=== PATIENT | male | born 1975 | race Caucasian/White ===

== ENCOUNTER → 2024-11-21 | Outpatient (CLI) | payer OTHER, SELFPAY ==
--- NOTE | 2024-11-21 16:49 | CT_ITS ---
PROCEDURE: EXTREMITY UPPER WITHOUT CONTRA 11/21/2024 REASON FOR EXAM: TSA PLANNING, NEED BLUEPRINT CUTS FOR STEMLESS TSA TECHNIQUE: Procedure Code: CTEUWO Modality: CT Procedure: EXTREMITY UPPER WITHOUT CONTRA Coronal and Sagittal reconstruction series were provided. One or more dose reduction techniques were used (e.g., Automated exposure control, adjustment of the mA and/or kV according to patient size, use of iterative reconstruction technique. RADIATION DOSE SUMMARY: CTDlvol: 40 mGy DLP: 1167 mGycm FINDINGS: Severe diffuse grade 4 udwt-fi-ygqf glenohumeral joint arthrosis with extensive periarticular cystic changes, cortical erosions, periarticular sclerosis, marginal osseous ridging, broadening and mild flattening of the articular surfaces, effusion and multiple internal bodies. No evidence of fracture Mild superior humeral head migration. No significant AC joint arthrosis. No adenopathy or other soft tissue abnormality identified, aside from mild atrophy of all rotator cuff muscles. Visualized portions of the lungs appear unremarkable. Cervicothoracic spondylosis, without fracture or spondylolisthesis identified. CT/Extremity Upper without Contra IMPRESSION: Severe diffuse grade 4 bluv-ng-esou glenohumeral joint arthrosis, with effusion and internal bodies. Rotator cuff muscle atrophy and mild superior humeral head migration. Spondylosis. Reading Location: [place]
--- NOTE | 2024-11-21 16:58 | MRI_ITS ---
PROCEDURE: UPPER EXT JOINT ONLY(ROUTINE) 11/21/2024 REASON FOR EXAM: EVAL THE CUFF FOR PLANNING A TOTAL SHOULDER TECHNIQUE: Procedure Code: MRIUEJ Modality: MR Procedure: UPPER EXT JOINT ONLY(ROUTINE) Multiplanar and multisequence images were obtained without IV contrast administration. COMPARISON: COMPARISON: Left shoulder CT 11/21/2024. FINDINGS: Rotator cuff: Mild atrophy of all rotator cuff muscles. Rotator cuff tendinosis with gku-pe-eoswksgf grade deep margin partial tearing of the distal infraspinatus tendon just proximal to the insertion. Ill- defined moderate grade irregular partial tearing along both surfaces of the supraspinatus tendon predominating anteriorly, causing overall moderately severe attenuation, with as much as 3.1 cm retraction of torn deep origin fibers, without full-thickness tear component. Thinning and mild deep margin partial tearing of the distal subscapularis tendon. Long biceps tendinosis without tear, subluxation, retraction or tenosynovitis. Bones and soft tissues: Severe diffuse grade 4 rlim-kq-sbhw glenohumeral joint chondral loss, with extensive periarticular bone edema and subcortical cystic changes lining both articular surfaces, with mild cortical irregularity, broadening and flattening across the joint. Glenohumeral joint effusion containing multiple internal bodies, mostly residing in the anterior subscapular recess. Type 1 acromion. No coracoclavicular ligament tear. Mild AC joint arthrosis. Slight subacromial/subdeltoid bursitis. Mild posterior humeral head subluxation. Labrum: Undermining and partial detachment of the posterior labrum. Blunting and fraying of the anterior labrum. Attenuation, blunting and fraying of the superior labrum. Severe inferior labral attenuation and irregularity, suggesting chronic tearing. No definite paralabral cyst. MRI/Upper Ext Joint Only(Routine) IMPRESSION: Severe diffuse grade 4 ubdj-dw-hdsh glenohumeral joint arthrosis with periartic ular cystic changes, bone edema, effusion and internal bodies. Mild posterior humeral head subluxation. Ill-defined moderate grade partial tearing of both surfaces of the supraspinatu s tendon cause overall moderately severe attenuation. Extensive areas of blunting, fraying, undermining, partial detachment and teari ng of the labrum as described. Uuc-ma-vouulgov grade deep margin partial tearing of the distal infraspinatus t endon. Thinning and deep margin partial tearing of the distal subscapularis tendon. Slight subacromial/subdeltoid bursitis. Mild AC joint arthrosis. Rotator cuff and long biceps tendinosis. Reading Location[facility]
--- OUTSIDE RECORDS SUMMARY | 2024-11-22 00:51 | XMS RPT_ITS | CCD ---
Author Organization [facility] Care Team Providers Care Principal Clerk Typist Name Role Phone Julio Witt MD Attending Physician [phone] Julio Witt Attending Unavailable [facility] Doctor, Out of Primary Care Unavailable Julio Witt Referring Unavailable Julio Witt Attending Unavailable Medications Current Medications Medication Drug Class(es) Dates Sig (Normalized) Sig (Original) acetaminophen 325 mg oral capsule (1 source) Start: 11-07-2024 take 1 capsule by mouth once as needed Problems Problem Classification Problem Date Documented Date Episodic/Chronic Osteoarthritis (4 sources) Osteoarthritis of joint of left shoulder region; Translations: [Primary osteoarthritis, left shoulder] Onset: 11-07-2024 11-07-2024 Chronic Other non-traumatic joint disorders (4 sources) Pain in left shoulder; Translations: [Left shoulder pain] Onset: 11-07-2024 11-07-2024 Episodic Results Test Name Value Interpretation Reference Range Facil [facility] Orthopedic Visit Reporton Orthopedic Visit Report [facility] [address] [place] [address] OFFICE VISIT Date of Service: 11/07/24 MR#: [id number] Acct: [id number] Name: NIKOLAY HILTON Rep #: [id number] : 1975 Provider: Dr. Julio posey MD Age/Sex: 49/M [place] [facility] [place]: Signed Intake Vital Signs 11/07/24 14:37 Height 5 ft 9 in Weight: 240 lb BMI 35.4 Intake Visit Reasons: LEFT SHOULDER Chief Complaint: Left Shoulder Pain Accompanied by: Self Is patient in pain?: Yes Pain scale (1-10): 2 Allergies No Known Allergies Allergy (Unverified 11/07/24 14:38) Medications ???Medication ???Instructions ???Recorded ???Confirmed ???Type acetaminophen 325 mg capsule 325 mg PO ONCE PRN 11/07/24 History PFSH Medical History (Updated 11/07/24 @ 14:46 by Julio Witt MD) Primary osteoarthritis, left shoulder Left shoulder pain Surgical History History of cervical spinal surgery History of ankle surgery Family History (Updated 11/07/24 @ 14:39 by Gabrielle Guadarrama) Other Diabetes Social History (Updated 11/07/24 @ 14:40 by Gabrielle Guadarrama) household members: spouse and children Smoking Status: Never smoker alcohol intake: current alcohol intake frequency: holidays/special occasions only HPI LEFT SHOULDER Details: This documentation accurately reflects the service provided and the decisions made by me, Dr. Julio Witt MD 11/07/24 1301. Part of today???s visit was documented by [ ], acting as scribe. 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 getting stiff in FE and abudciton, worse with laying down, feels like it slips. affects the sleep. went to surgeon in [place], they did a couple cortisone injections but they aren't helping. last one months ago. Supplemental Info XR L shoulder -uploaded to PACS show advanced degenerative changes central wear Contreras type a glenoid osteoarthritic changes with complete loss of the joint space and a large medial osteophyte 10/31/23 Coding Level of Care Code Off vis,new,level 4 Diagnoses Left shoulder pain M25.512 Primary osteoarthritis, left shoulder M19.012 Assessment and Plan Assessment and Plan (1) Left shoulder pain: Status: Acute Plan: NIKOLAY HILTON is a 49 year old M here today for L shoulder pain. Patient has advanced glenohumeral osteoarthritis. Explained the diagnosis prognosis different treatment options including rest ice anti-inflammatories activity modifications intra-articular cortisone injections as well as a total shoulder arthroplasty. I think the patient would be well served with a joint replacement surgery considering multiple years of pain difficulty sleeping and failure of conservative management. Patient understands wishes to likely proceed with an anatomic total shoulder arthroplasty so I will get a CT scan for blueprint planning as well as a MRI to evaluate the rotator cuff. The patient understands no further questions will follow-up after the test. (2) Primary osteoarthritis, left shoulder: Status: Acute Orders: Orders Extremity Upper without Contra Today M19.012 - Primary osteoarthritis, left shoulder, M25.512 - Pain in left shoulder Upper Ext Joint Only(Routine) Today M19.012 - Primary osteoarthritis, left shoulder, M25.512 - Pain in left shoulder Ortho Exam General General: Yes no acute distress Neurologic: Yes alert and Yes oriented x3 Psychologic: Yes reasonable and appropriate Left Shoulder Skin/Wound: Yes CDI, No ecchymosis, No erythema and No swelling Testing: Yes Hawkin's, Yes Neer's, No empty can, No scapular winging and Yes belly press normal SHOULDER: normal motor and sens to axillary N, MRU and AIN/PIN. Hand warm well perfused normal radial pulse active and passive FE 80, ER 0. strengh 4++ in FE and ER. ++ crepitus, pain at end ROM. 11/07/24 1500 Date Julio Witt MD Cosigner Signature: Date (if applicable) CC: Normal [facility] Vital Signs Date Time Vital Sign Value Performing Clinician Dia remy 11-07-2024 14:37-0400 Body height 175.26 cm Julio Witt MD Work Phone: [facility] 11-07-2024 14:37-0400 Body mass index (BMI) [Ratio] 35.4 kg/m2 Julio Witt MD Work Phone: [facility] 11-07-2024 14:37-040 Body weight 108.86 kg Julio Witt MD Work Phone: [facility] Encounters Encounter Date Encounter Type Care Provider Facility Start: 11-21-2024 ambulatory Out of Town Doctor Dia remy:[facility] Start: 11-07-2024 End: 11-07-[address] Julio Witt MD -[facility] Work Phone: Start: 11-07-2024 End: 11-07-2024 ambulatory Julio Witt -[facility] Plan of Treatment Date Care Activity Detail Author CT Upper extremity WO [facility] MR Lower Extremity Joint [facility] Immunizations Immunization Date Immunization Notes Care Provider Fa cility 04-03-2023 Hepatitis B vaccine (recombinant), CpG adjuvanted Julio Witt MD Work Phone: [facility] 02-17-2023 Hepatitis B vaccine (recombinant), CpG adjuvanted Julio Witt MD Work Phone: [facility] 12-17-2020 Covid (Pfizer) Julio carpenter MD Work Phone: [facility] 03-09-2020 Covid (Pfizer) Julio carpenter MD Work Phone: [facility] 02-17-2020 Covid (Pfizer) Julio carpenter MD Work Phone: [facility] Payers Date Payer Category Payer Self-pay 2024 Unknown [id number] Unknown [id number] Unknown [id number] Social History Date Type Detail Facility Start: 11-07-2024 Tobacco smoking stat us [facility] Never smoked tobacco (finding) [facility] Sex Male [facility] Start: 1975 Sex Assigned At Male [facility] Progress note 11-07-2024 Note Date & Type Note Facility 11-07-2024 Progress note [facility] Progress note 11-07-2024 Note Date & Type Note Facility 11-07-2024 Progress note Note Date/Time November 07, 2024 2:58pm [facility] [address] [place] [id number] OFFICE VISIT Date of Service: 11/07/24 MR#: [id number] Acct: [id number] Name: NIKOLAY HILTON Rep #: [id number] : 1975 Provider: Dr. Mateus Witt MD Age/Sex: 49/M Location: [facility] [place] Status: Signed Intake Vital Signs 11/07/24 14:37 Height 5 ft 9 in Weight: 240 lb BMI 35.4 Intake Visit Reasons: LEFT SHOULDER Chief Complaint: Left Shoulder Pain Accompanied by: Self Is patient in pain?: Yes Pain scale (1-10): 2 Allergies No Known Allergies Allergy (Unverified 11/07/24 14:38) Medications ?Medication ?Instructions ?Recorded ?Confirmed ?Type acetaminophen 325 mg capsule 325 mg PO ONCE PRN 11/07/24 History PFSH Medical History (Updated 11/07/24 @ 14:46 by Julio Witt MD) Primary osteoarthritis, left shoulder Left shoulder pain Surgical History History of cervical spinal surgery History of ankle surgery Family History (Updated 11/07/24 @ 14:39 by Gabrielle Guadarrama) Other Diabetes Social History (Updated 11/07/24 @ 14:40 by Gabrielle Guadarrama) household members: spouse and children Smoking Status: Never smoker alcohol intake: current alcohol intake frequency: holidays/special occasions only HPI LEFT SHOULDER Details: This documentation accurately reflects the service provided and the decisions made by me, Dr. Julio Witt MD 11/07/24 1301. Part of today?s visit was documented by [ ], acting as scribe. 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 getting stiff in FE and abudciton, worse with laying down, feels like it slips. affects the sleep. went to surgeon in [place], they did a couple cortisone injections but they aren't helping. last one months ago. Supplemental Info XR L shoulder -uploaded to PACS show advanced degenerative changes central wear Contreras type a glenoid osteoarthritic changes with complete loss of the joint space and a large medial osteophyte 10/31/23 Coding Level of Care Code Off vis,new,level 4 Diagnoses Left shoulder pain M25.512 Primary osteoarthritis, left shoulder M19.012 Assessment and Plan Assessment and Plan (1) Left shoulder pain: Status: Acute Plan: NIKOLAY HILTON is a 49 year old M here today for L shoulder pain. Patient has advanced glenohumeral osteoarthritis. Explained the diagnosis prognosis different treatment options including rest ice anti-inflammatories activity modifications intra-articular cortisone injections as well as a total shoulder arthroplasty. I think the patient would be well served with a joint replacementsurgery considering multiple years of pain difficulty sleeping and failure of conservative management. Patient understands wishes to likely proceed with an anatomic total shoulder arthroplasty so I will get a CT scan for blueprint planning as well as a MRI to evaluate the rotator cuff. The patient understandsno further questions will follow-up after the test. (2) Primary osteoarthritis, left shoulder: Status: Acute Orders: Orders Extremity Upper without Contra Today M19.012 - Primary osteoarthritis, left shoulder, M25.512 - Pain in left shoulder Upper Ext Joint Only(Routine) Today M19.012 - Primary osteoarthritis, left shoulder, M25.512 - Pain in left shoulder Ortho Exam General General: Yes no acute distress Neurologic: Yes alert and Yes oriented x3 Psychologic: Yes reasonable and appropriate Left Shoulder Skin/Wound: Yes CDI, No ecchymosis, No erythema and No swelling Testing: Yes Hawkin's, Yes Neer's, No empty can, No scapular winging and Yes belly press normal SHOULDER: normal motor and sens to axillary N, MRU and AIN/PIN. Hand warm well perfused normal radial pulse active and passive FE 80, ER 0. strengh 4++ in FE and ER. ++ crepitus, pain at end ROM. 11/07/24 1500 <Electronically signed by Julio carpenter MD> Date _ Julio Witt MD Cosigner Signature: Date (if applicable) CC: ~ [facility] Work Phone: Evaluation note Note Date & Type Note Facility Evaluation note Diagnosis Onset Date Resolution Left shoulder pain acute Septem 2024 2:33pm Primary osteoarthritis, left shoulder acute November 07, 2024 2:33pm [facility] Work Phone: Reason for referral (narrative) Note Date & Type Note Facility Reason for referral (narrative) No reason for referral information available [facility] Work Phone: Chief Complaint and Reason for Visit Chief Complaint Admit Date LEFT SHOULDER November 07, 2024 2:33pm Reason for Visit Admit Date Left shoulder pain November 07, 2024 2:33pm Primary osteoarthritis, left shoulder Se ptember 2024 2:33pm Summary Purpose Family History No Family History Records Found Advance Directives No Advanced Directives Records Found Additional Source Comments Care Teams (unrecognized sec tion and content) Team Status: Active Member Role/Relationship Status Dates Out of [facility] Doctor Primary care physician Active Team Status: Inactive Member Role/Relationship Status Dates Julio Witt MD Attending physician Active S tart: November 07, 2024 End: November 07, 2024 Goals (unrecognized section and content) Goals may be documented in a n alternate section (unrecognized sect ion and content) No Status Records Found INFORMATION SOURCE (unrecogn ized section and content) DATE CREATED AUTHOR 11/13/2024 [facility] FOR RECORDS PERTAINING TO PATIENTS WHO ARE OR HAVE BEEN ENROLLED IN A CHEMICAL DEPENDENCY/SUBSTANCEABUSE PROGRAM, SOME INFORMATION MAY BE OMITTED. This clinical summary was aggregated from multiple sources. Caution should be exercised in using it in the provision of clinical care. This summary normalizes information from multiple sources, and as a consequence, information in this document may materially change the coding, format and clinical context of patient data. In addition, data may be omitted in some cases. CLINICAL DECISIONS SHOULD BE BASED ON THE PRIMARY CLINICAL RECORDS. [facility]. provides no warranty or guarantee of the accuracy or completeness of information in this document.
== END | disposition home or self-care (01) ==
PROVIDERS: Referring Provider Orthopaedic Surgery Sports Medicine; Visit Provider Orthopaedic Surgery Sports Medicine
DX: M19.012 Primary osteoarthritis, left shoulder (principal); M25.512 Pain in left shoulder
CPT/HCPCS: 73200; 73221

== ENCOUNTER 2025-01-01 05:18 | Day surgery (SDC) | payer OTHER, SELFPAY ==
--- NOTE | 2024-12-26 14:09 | EKG12_ITS ---
Test Reason : PRE OP Blood Pressure : */* mmHG Vent. Rate : 76 BPM Atrial Rate : 76 BPM P-R Int : 158 ms QRS Dur : 86 ms QT Int : 364 ms P-R-T Axes : 67 59 48 degrees QTcB Int : 409 ms Normal sinus rhythm Normal ECG No previous ECGs available Confirmed by Devon Mendoza ([id number]), assignment desk editor BIJU ROMERO ([id number]) on 12/30/2024 1:09:45 PM Referred By: Julio Witt Confirmed By: Devon Mendoza
[2024-12-26 14:38] LABS: Hematocrit 44.1 % (40-54); Hemoglobin 14.6 g/dL (13.0-16.5); Immature Granulocytes Count 0.010 X10^3/uL (0.0-0.0); Mean Corp Hgb Conc 33.1 g/dL (32-36); Mean Corpuscular Volume 81.4 fL (80-94); Mean Platelet Vol. 8.8 fl (6.2-12.0); NRBC Flagged by Analyzer 0 % (0-5); Platelet Count 388 K/mm3 (150-450); RBC Distribution Width CV 13.1 % (11.6-14.6); RBC Distribution Width SD 38.5 fl (35.1-43.9); Red Blood Count 5.42 M/mm3 (4.6-6.2); White Blood Count 7.5 K/mm3 (4.4-11.0)
[2024-12-26 14:51] LABS: Partial Thromboplast Time 27.8 Seconds (24.1-36.2); Prothrombin Time (Protime)PT. 13.2 SECONDS (11.7-14.9)
[2024-12-26 15:21] LABS: Anion Gap 9 (5-15); BUN 24 mg/dL (4-19); BUN/Creat Ratio 23.8 RATIO (10-20); Calcium,Total 9.6 mg/dL (7.6-11.0); Carbon Dioxide 26.3 mmol/L (21.0-32.0); Chloride 105 mmol/L (98-108); Glucose 126 mg/dL (70-99); Magnesium 2.2 mg/dL (1.5-2.2); Potassium 3.9 mmol/L (3.3-5.1)
[2025-01-01] VITALS (12 sets, daily range): BP systolic 110–142; BP diastolic 74–89; PULSE 71–93; RESP 16–18; TEMP 35.6–36.6; O2SAT 97–100; BMI 36.4
--- OUTSIDE RECORDS SUMMARY | 2025-01-01 05:20 | XMS RPT_ITS | CCD ---
Author Organization [facility] Inform ion Partnership [facility] Care Team Providers Care Nurse Instructor Name Role Phone Julio Witt MD Attending Physician [phone] Julio Witt MD Referring Provider [phone] NIKOLAY COLUNGA Primary Care Physician [phone] Julio Witt Attending Unavailable Julio Witt Attending Unavailable Julio Witt Referring Unavailable MANDI MONIQUE Primary Care Unavailable Julio Witt Attending Unavailable Julio Witt Referring Unavailable MANDI MONIQUE Primary Care Unavailable Julio Witt Attending Unavailable Medications Current Medications Medication Drug Class(es) Dates Sig (Normalized) Sig (Original) acetaminophen 325 mg oral capsule (3 sources) Start: 11-07-2024 take 1 capsule by mouth once as needed Problems Problem Classification Problem Date Documented Date Episodic/Chronic Osteoarthritis (9 sources) Osteoarthritis of joint of left shoulder region; Translations: [Primary osteoarthritis, left shoulder] Onset: 12-01-2024 11-07-2024 Chronic Other non-traumatic joint disorders (9 sources) Pain in left shoulder; Translations: [Left shoulder pain] Onset: 11-07-2024 11-07-2024 Episodic Results Test Name Value Interpretation Reference Range Facility Fructosamineon 12-28-2024 FRUCTOSAMINE 211 umol/L Normal 0-285 [facility] Comment on above: Result Comment: Publ ished reference interval for apparently healthy subjects between age 20 and 60 is 205 - 285 umol/L and in a poorly controlled diabetic population is 228 - 563 umol/L with a mean of 396 umol/L. Performed at: [facility] [address] [id number] [employer] Weapons Crewmember: Osei Schneider PhD, Phone: [phone] Performed By: #### M 100.651, L500.2500, L501.9985, L300.3900, L300.4310, L3400.0100, BTSPAT, L100.0100, L501.5200 ####[facility] [address] [place], [address] MRSA/SAID NASAL SCREENon MRSA+SAID SCRN Reason for Exam: PRE OP MRSA MRSA Negative S. AUREUS S. aureus Negative Normal [facility] Comment on above: Performed By: #### M 100.651, L500.2500, L501.9985, L300.3900, L300.4310, L3400.0100, BTSPAT, L100.0100, L501.5200 ####[facility] [address] [place], [address] 12 Lead EKGon 12-26-2024 12 Lead EKG [facility] Cardiovascular Services [address] [place] [address] 12 Lead EKG 12/26/24 1411 MR#: [id number] Acct: [id number] Name: NIKOLAY HILTON Rep #: [id number] : 1975 49 From: Devon Mendoza MD Attending Dr: Dr. Julio Witt MD [place] [facility] [place]: Julio Witt MD Date: 12/26/24 [place] [facility] [place] Sex: M C Admitted: Test Reason : PRE OP Blood Pressure : */* mmHG Vent. Rate : 76 BPM Atrial Rate : 76 BPM P-R Int : 158 ms QRS Dur : 86 ms QT Int : 364 ms P-R-T Axes : 67 59 48 degrees QTcB Int : 409 ms Normal sinus rhythm Normal ECG No previous ECGs available Confirmed by Devon Mendoza ([id number]), news editor BIJU ROMERO ([id number]) on 12/30/2024 1:09:45 PM Referred By: Julio Witt Confirmed By: Devon Mendoza 12/30/24 1309 Date Devon Mendoza MD CC: Dr. Julio Witt MD; NIKOLAY MAIN Signed Normal [facility] Basic Metabolic Profile (BMP )on 12-26-2024 BUN/CRE 23.8 RATIO High 10-20 [facility] Comment on above: Performed By: #### M 100.651, L500.2500, L501.9985, L300.3900, L300.4310, L3400.0100, BTSPAT, L100.0100, L501.5200 #### [facility] [address] [place], [address] Calcium [Mass/Vol] 9.6 mg/dL Normal 7.6-11.0 [facility] Comment on above: Performed By: #### M 100.651, L500.2500, L501.9985, L300.3900, L300.4310, L3400.0100, BTSPAT, L100.0100, L501.5200 #### [facility] [address] [place], [address] Chloride [Moles/Vol] 105 mmol/L Normal 98-108 [facility] Comment on above: Performed By: #### M 100.651, L500.2500, L501.9985, L300.3900, L300.4310, L3400.0100, BTSPAT, L100.0100, L501.5200 #### [facility] [address] [place], [address] CO2 [Moles/Vol] 26.3 mmol/L Normal 21.0-32.0 [facility] Comment on above: Performed By: #### M 100.651, L500.2500, L501.9985, L300.3900, L300.4310, L3400.0100, BTSPAT, L100.0100, L501.5200 #### [facility] [address] [place], [address] Creatinine [Mass/Vol] 1.01 mg/dL Normal 0.70-1.20 [facility] Comment on above: Performed By: #### M 100.651, L500.2500, L501.9985, L300.3900, L300.4310, L3400.0100, BTSPAT, L100.0100, L501.5200 #### [facility] [address] [place], [address] GAP 9 Normal 5-15 [facility] Comment on above: Performed By: #### M 100.651, L500.2500, L501.9985, L300.3900, L300.4310, L3400.0100, BTSPAT, L100.0100, L501.5200 #### [facility] [address] [place], [address] GFR/1.73 sq M.predicted among non-blacks MDRD (S/P/Bld) [Vol rate/Area] 91 mL/min/{1.73_m2} Normal >60 [facility] Comment on above: Result Comment: mL/m in/1.73m2 CKD-EPI Creatinine Equation (2020) Performed By: #### M 100.651, L500.2500, L501.9985, L300.3900, L300.4310, L3400.0100, BTSPAT, L100.0100, L501.5200 #### [facility] [address] [place], [address] Glucose [Mass/Vol] 126 mg/dL High 70-99 [facility] Comment on above: Performed By: #### M 100.651, L500.2500, L501.9985, L300.3900, L300.4310, L3400.0100, BTSPAT, L100.0100, L501.5200 #### [facility] [address] [place], [address] Potassium [Moles/Vol] 3.9 mmol/L Normal 3.3-5.1 [facility] Comment on above: Performed By: #### M 100.651, L500.2500, L501.9985, L300.3900, L300.4310, L3400.0100, BTSPAT, L100.0100, L501.5200 #### [facility] [address] [place], [address] Sodium [Moles/Vol] 140 mmol/L Normal 133-145 [facility] Comment on above: Performed By: #### M 100.651, L500.2500, L501.9985, L300.3900, L300.4310, L3400.0100, BTSPAT, L100.0100, L501.5200 #### [facility] [address] [place], [address] Urea nitrogen [Mass/Vol] 24 mg/dL High 4-19 [facility] Comment on above: Performed By: #### M 100.651, L500.2500, L501.9985, L300.3900, L300.4310, L3400.0100, BTSPAT, L100.0100, L501.5200 #### [facility] [address] [place], [address] CBC W/Diff, Automatedon 11-0 6-2024 Absolute Lymph 3.18 X10 3/uL Normal 0.83-4.51 [facility] Comment on above: Performed By: #### M 100.651, L500.2500, L501.9985, L300.3900, L300.4310, L3400.0100, BTSPAT, L100.0100, L501.5200 #### [facility] [address] [place], [address] Absolute Neut 3.6 X10 3/uL Normal 2.0-7.7 [facility] Comment on above: Performed By: #### M 100.651, L500.2500, L501.9985, L300.3900, L300.4310, L3400.0100, BTSPAT, L100.0100, L501.5200 #### [facility] [address] [place], [address] Basophils/100 WBC (Bld) 0.5 % Normal 0-1 [facility] Comment on above: Performed By: #### M 100.651, L500.2500, L501.9985, L300.3900, L300.4310, L3400.0100, BTSPAT, L100.0100, L501.5200 #### [facility] [address] [place], [address] Eosinophils/100 WBC (Bld) 0.9 % Normal 0-5 [facility] Comment on above: Performed By: #### M 100.651, L500.2500, L501.9985, L300.3900, L300.4310, L3400.0100, BTSPAT, L100.0100, L501.5200 #### [facility] [address] [place], [address] Erythrocyte distribution width (RBC) [Ratio] 13.1 % Normal 11.6-14.6 [facility] Comment on above: Performed By: #### M 100.651, L500.2500, L501.9985, L300.3900, L300.4310, L3400.0100, BTSPAT, L100.0100, L501.5200 #### [facility] [address] [place], [address] Hematocrit (Bld) [Volume fraction] 44.1 % Normal 40-54 [facility] Comment on above: Performed By: #### M 100.651, L500.2500, L501.9985, L300.3900, L300.4310, L3400.0100, BTSPAT, L100.0100, L501.5200 #### [facility] [address] [place], [address] Hemoglobin (Bld) [Mass/Vol] 14.6 g/dL Normal 13.0-16.5 [facility] Comment on above: Performed By: #### M 100.651, L500.2500, L501.9985, L300.3900, L300.4310, L3400.0100, BTSPAT, L100.0100, L501.5200 #### [facility] [address] [place], [address] IG% 0.100 Normal 0.0-0.9 [facility] Comment on above: Result Comment: IG% - Immature Granulocytes (promyelocytes, myelocytes and metamyelocytes) > 1% indicates that a LEFT SHIFT is Present. Performed By: #### M 100.651, L500.2500, L501.9985, L300.3900, L300.4310, L3400.0100, BTSPAT, L100.0100, L501.5200 #### [facility] [address] [place], [address] Lymphocytes/100 WBC (Bld) 42.5 % High 19-41 [facility] Comment on above: Performed By: #### M 100.651, L500.2500, L501.9985, L300.3900, L300.4310, L3400.0100, BTSPAT, L100.0100, L501.5200 #### [facility] [address] [place], [address] MCH (RBC) [Entitic mass] 26.9 pg Low 27.0-32.0 [facility] Comment on above: Performed By: #### M 100.651, L500.2500, L501.9985, L300.3900, L300.4310, L3400.0100, BTSPAT, L100.0100, L501.5200 #### [facility] [address] [facility] [place], [address] MCHC (RBC) [Mass/Vol] 33.1 g/dL Normal 32-36 [facility] Comment on above: Performed By: #### M 100.651, L500.2500, L501.9985, L300.3900, L300.4310, L3400.0100, BTSPAT, L100.0100, L501.5200 #### [facility] [address] [place], [address] MCV (RBC) [Entitic vol] 81.4 fL Normal 80-94 [facility] Comment on above: Performed By: #### M 100.651, L500.2500, L501.9985, L300.3900, L300.4310, L3400.0100, BTSPAT, L100.0100, L501.5200 #### [facility] [address] [place], [address] Monocytes/100 WBC (Bld) 7.5 % Normal 0-10 [facility] Comment on above: Performed By: #### M 100.651, L500.2500, L501.9985, L300.3900, L300.4310, L3400.0100, BTSPAT, L100.0100, L501.5200 #### [facility] [address] [facility] [place] [place], [address] Neutrophils/100 WBC (Bld) 48.5 % Normal 47-70 [facility] Comment on above: Performed By: #### M 100.651, L500.2500, L501.9985, L300.3900, L300.4310, L3400.0100, BTSPAT, L100.0100, L501.5200 #### [facility] [address] [place], [address] Nucleated RBC (Bld) [#/Vol] 0 10*3/uL Normal 0-5 [facility] Comment on above: Performed By: #### M 100.651, L500.2500, L501.9985, L300.3900, L300.4310, L3400.0100, BTSPAT, L100.0100, L501.5200 #### [facility] [address] [place], [address] Platelet mean volume (Bld) [Entitic vol] 8.8 fL Normal 6.2-12.0 [facility] Comment on above: Performed By: #### M 100.651, L500.2500, L501.9985, L300.3900, L300.4310, L3400.0100, BTSPAT, L100.0100, L501.5200 #### [facility] [address] [place], [address] Platelets (Bld) [#/Vol] 388 10*3/uL Normal 150-450 [facility] Comment on above: Performed By: #### M 100.651, L500.2500, L501.9985, L300.3900, L300.4310, L3400.0100, BTSPAT, L100.0100, L501.5200 #### [facility] [address] [place], [address] RBC (Bld) [#/Vol] 5.42 10*6/uL Normal 4.6-6.2 [facility] Comment on above: Performed By: #### M 100.651, L500.2500, L501.9985, L300.3900, L300.4310, L3400.0100, BTSPAT, L100.0100, L501.5200 #### [facility] [address] [place], [address] RDW SD 38.5 fl Normal 35.1-43.9 [facility] Comment on above: Performed By: #### M 100.651, L500.2500, L501.9985, L300.3900, L300.4310, L3400.0100, BTSPAT, L100.0100, L501.5200 #### [facility] [address] [place], [address] WBC (Bld) [#/Vol] 7.5 10*3/uL Normal 4.4-11.0 [facility] Comment on above: Performed By: #### M 100.651, L500.2500, L501.9985, L300.3900, L300.4310, L3400.0100, BTSPAT, L100.0100, L501.5200 #### [facility] [address] [place], [address] Hemoglobin A1con 12-26-2024 HbA1c (Bld) [Mass fraction] 5.7 % Normal <=5.6 [facility] Comment on above: Result Comment: Norm al < 5.7 % Prediabetic 5.7 - 6.4 % Diabetic >or= 6.5 % Please note range changes. Performed By: #### M 100.651, L500.2500, L501.9985, L300.3900, L300.4310, L3400.0100, BTSPAT, L100.0100, L501.5200 #### [facility] [address] [place], [address] Magnesiumon 12-26-2024 Magnesium [Mass/Vol] 2.2 mg/dL Normal 1.5-2.2 [facility] Comment on above: Performed By: #### M 100.651, L500.2500, L501.9985, L300.3900, L300.4310, L3400.0100, BTSPAT, L100.0100, L501.5200 ####[facility] [address] [place], [place], [id number] Partial Thromboplast Timeon 12-26-2024 aPTT Coag (Bld) [Time] 27.8 s Normal 24.1-36.2 [facility] Comment on above: Performed By: #### M 100.651, L500.2500, L501.9985, L300.3900, L300.4310, L3400.0100, BTSPAT, L100.0100, L501.5200 #### [facility] [address] [place], [address] Prothrombin Time w/INRon INR Coag (PPP) [Relative time] 1.0 {INR} Normal [facility] Comment on above: Performed By: #### M 100.651, L500.2500, L501.9985, L300.3900, L300.4310, L3400.0100, BTSPAT, L100.0100, L501.5200 #### [facility] [address] [place], [place], [address] PT Coag (PPP) [Time] 13.2 s Normal 11.7-14.9 [facility] Comment on above: Performed By: #### M 100.651, L500.2500, L501.9985, L300.3900, L300.4310, L3400.0100, BTSPAT, L100.0100, L501.5200 #### [facility] [address] [place], [place], [id number] Type AND Screen - PAT ONLYon 12-26-2024 ABO and Rh group Nom (Bld) Blood group A Rh(D) positive Normal [facility] Comment on above: Order Comment: Reaso n for Laboratory Test [id number]/TRINO(L) Left Total Shoulder Replacement Performed By: #### M 100.651, L500.2500, L501.9985, L300.3900, L300.4310, L3400.0100, BTSPAT, L100.0100, L501.5200 ####[facility] [address] [place], [address] Orthopedic Visit Reporton Orthopedic Visit Report [facility] [address] [place] [address] 5 [place] [address] OFFICE VISIT Date of Service: 11/28/24 MR#: [id number] Acct: [id number] Name: NIKOLAY HILTON Rep #: [id number] : 1975 Provider: Dr. Julio posey MD Age/Sex: 49/M [place] [facility] [place] Status: Signed Intake Vital Signs 11/07/24 14:37 11/28/24 15:17 Height 5 ft 9 in 5 ft 9 in Weight: 240 lb 225 lb BMI 35.4 33.2 Intake Visit Reasons: LEFT SHOULDER Chief Complaint: Left Shoulder MRI/CT review Accompanied by: Self Is patient in pain?: Yes Pain scale (1-10): 2 Allergies No Known Allergies Allergy (Unverified 11/28/24 15:24) Medications ???Medication ???Instructions ???Recorded ???Confirmed ???Type acetaminophen 325 mg capsule 325 mg PO ONCE PRN 11/07/24 History Have you fallen in the past year?: No PFSH Medical History Primary osteoarthritis, left shoulder Left shoulder pain Surgical History History of cervical spinal surgery History of ankle surgery Family History Other Diabetes Social History household members: spouse and children Smoking Status: Never smoker alcohol intake: current alcohol intake frequency: holidays/special occasions only HPI LEFT SHOULDER Details: This documentation accurately reflects the service provided and the decisions made by me, Dr. Julio Witt MD 11/28/24 1431. Part of today???s visit was documented by [ ], acting as scribe. NIKOLAY HILTON is a 49 year old M here today for follow-up left shoulder CT and MRI for arthroplasty planning. Patient continues to have quite bad night pain. He is interested to proceed with total shoulder arthroplasty. Supplemental Info [facility] Imaging Services [address] [place] [address] Upper Ext Joint Only(Routine) MR#: [id number] Acct: [id number] Name: NIKOLAY HILTON Rep #: [id number] : 1975 M 49 From: Alfa Ordonez MD PCP: NIKOLAY COLUNGA Status: REG CLI Study: Upper Ext Joint Only(Routine) Date of Exam: 11/21/24 Exam# [id number] Ordering Dr: Julio Witt MD PROCEDURE: UPPER EXT JOINT ONLY(ROUTINE) 11/21/2024 REASON FOR EXAM: EVAL THE CUFF FOR PLANNING A TOTAL SHOULDER TECHNIQUE: Procedure Code: MRIUEJ Modality: MR Procedure: UPPER EXT JOINT ONLY(ROUTINE) Multiplanar and multisequence images were obtained without IV contrast administration. COMPARISON: COMPARISON: Left shoulder CT 11/21/2024. FINDINGS: Rotator cuff: Mild atrophy of all rotator cuff muscles. Rotator cuff tendinosis with iyp-wh-pgcwhlgq grade deep margin partial tearing of the distal infraspinatus tendon just proximal to the insertion. Ill-defined moderate grade irregular partial tearing along both surfaces of the supraspinatus tendon predominating anteriorly, causing overall moderately severe attenuation, with as much as 3.1 cm retraction of torn deep origin fibers, without full-thickness tear component. Thinning and mild deep margin partial tearing of the distal subscapularis tendon. Long biceps tendinosis without tear, subluxation, retraction or tenosynovitis. Bones and soft tissues: Severe diffuse grade 4 licx-cl-isgs glenohumeral joint chondral loss, with extensive periarticular bone edema and subcortical cystic changes lining both articular surfaces, with mild cortical irregularity, broadening and flattening across the joint. Glenohumeral joint effusion containing multiple internal bodies, mostly residing in the anterior subscapular recess. Type 1 acromion. No coracoclavicular ligament tear. Mild AC joint arthrosis. Slight subacromial/subdeltoid bursitis. Mild posterior humeral head subluxation. Labrum: Undermining and partial detachment of the posterior labrum. Blunting and fraying of the anterior labrum. Attenuation, blunting and fraying of the superior labrum. Severe inferior labral attenuation and irregularity, suggesting chronic tearing. No definite paralabral cyst. MRI/Upper Ext Joint Only(Routine) IMPRESSION: Severe diffuse grade 4 fcqu-ir-vehg glenohumeral joint arthrosis with periarticular cystic changes, bone edema, effusion and internal bodies. Mild posterior humeral head subluxation. Ill-defined moderate grade partial tearing of both surfaces of the supraspinatus tendon cause overall moderately severe attenuation. Extensive areas of blunting (more content not included)... Normal [facility] Magnetic resonance imaging r eportOrdered By: Alfa Ordonez on 11-26-2024 Study report [facility] Imaging Services [address] [place] [address] Upper Ext Joint Only(Routine) MR#: [id number] Acct: [id number] Name: NIKOLAY HILTON Rep #: [id number] : 1975 M 49 From: Mae Ordonez MD PCP: NIKOLAY COLUNGA Status: REG CLI Study:Upper Ext Joint Only(Routine) Date of Exam: 11/21/24 Exam# [id number] Ordering Dr: Julio Witt MD PROCEDURE: UPPER EXT JOINT ONLY(ROUTINE) 11/21/2024 REASON FOR EXAM: EVAL THE CUFF FOR PLANNING A TOTAL SHOULDER TECHNIQUE: Procedure Code: MRIUEJ Modality: MR Procedure: UPPER EXT JOINT ONLY(ROUTINE) Multiplanar and multisequence images were obtained without IV contrast administration. COMPARISON: COMPARISON: Left shoulder CT 11/21/2024. FINDINGS: Rotator cuff: Mild atrophy of all rotator cuff muscles. Rotator cuff tendinosiswith fhc-uj-nguinkjr grade deep margin partial tearing of the distal infraspinatus tendon just proximal to the insertion. Ill-defined moderate grade irregular partial tearing along both surfaces of the supraspinatus tendon predominating anteriorly, causing overall moderately severe attenuation, with as much as 3.1 cm retraction of torn deep origin fibers, without full-thickness tear component. Thinning and mild deep margin partial tearing of the distal subscapularis tendon. Long biceps tendinosis without tear, subluxation, retraction or tenosynovitis. Bones and soft tissues: Severe diffuse grade 4 arkr-zr-gsbe glenohumeral joint chondral loss, with extensive periarticular bone edema and subcortical cystic changes lining both articular surfaces, with mild cortical irregularity, broadening and flattening across the joint. Glenohumeral joint effusion containing multiple internal bodies, mostly residing in the anterior subscapular recess. Type 1 acromion. No coracoclavicular ligament tear. Mild AC joint arthrosis. Slight subacromial/subdeltoid bursitis. Mild posterior humeral head subluxation. Labrum: Undermining and partial detachment of the posterior labrum. Blunting and fraying of the anterior labrum. Attenuation, blunting and fraying of the superior labrum. Severe inferior labral attenuationand irregularity, suggesting chronic tearing. No definite paralabral cyst. MRI/Upper Ext Joint Only(Routine) IMPRESSION: Severe diffuse grade 4 obnl-fb-ntba glenohumeral joint arthrosis with periarticular cystic changes, bone edema, effusion and internal bodies. Mild posterior humeral head subluxation. Ill-defined moderate grade partial tearing of both surfaces of the supraspinatustendon cause overall moderately severe attenuation. Extensive areas of blunting, fraying, undermining, partial detachment and tearing of the labrum as described. Ven-ai-mryqprmw grade deep margin partial tearing of the distal infraspinatus tendon. Thinning and deep margin partial tearing of the distal subscapularis tendon. Slight subacromial/subdeltoid bursitis. Mild AC joint arthrosis. Rotator cuff and long biceps tendinosis. Reading Location: [place] CC: Dr. Julio Witt MD; NIKOLAY COLUNGA ~ Auto Servicer: Signed [facility] Extremity Upper without Cont raon 11-21-2024 Extremity Upper without Contra [facility] Imaging Services [address] [place] [address] Extremity Upper without Contra MR#: [id number] Acct: [id number] Name: NIKOLAY HILTON Rep #: [id number] : 1975 M 49 From: Alfa fuentes MD PCP: NIKOLAY COLUNGA Status: REG CLI Study: Extremity Upper without Contra Date of Exam: Exam# [id number] Ordering Dr: Julio Witt MD PROCEDURE: EXTREMITY UPPER WITHOUT CONTRA 11/21/2024 REASON FOR EXAM: TSA PLANNING, NEED BLUEPRINT CUTS FOR STEMLESS TSA TECHNIQUE: Procedure Code: CTEUWO Modality: CT Procedure: EXTREMITY UPPER WITHOUT CONTRA Coronal and Sagittal reconstruction series were provided. One or more dose reduction techniques were used (e.g., Automated exposure control, adjustment of the mA and/or kV according to patient size, use of iterative reconstruction technique. RADIATION DOSE SUMMARY: CTDlvol: 40 mGy DLP: 1167 mGycm FINDINGS: Severe diffuse grade 4 jaqm-ed-lifi glenohumeral joint arthrosis with extensive periarticular cystic changes, cortical erosions, periarticular sclerosis, marginal osseous ridging, broadening and mild flattening of the articular surfaces, effusion and multiple internal bodies. No evidence of fracture Mild superior humeral head migration. No significant AC joint arthrosis. No adenopathy or other soft tissue abnormality identified, aside from mild atrophy of all rotator cuff muscles. Visualized portions of the lungs appear unremarkable. Cervicothoracic spondylosis, without fracture or spondylolisthesis identified. CT/Extremity Upper without Contra IMPRESSION: Severe diffuse grade 4 hhup-gj-qmlu glenohumeral joint arthrosis, with effusion and internal bodies. Rotator cuff muscle atrophy and mild superior humeral head migration. Spondylosis. [facility] CC: Dr. Julio Witt MD; NIKOLAY COLUNGA Auto Servicer: Signed Normal [facility] Upper Ext Joint Only(Routine )on 11-21-2024 Upper Ext Joint Only(Routine) [facility] Imaging Services [address] [place] [place] [id number] Upper Ext Joint Only(Routine) MR#: [id number] Acct: [id number] Name: NIKOLAY HILTON Rep #: [id number] : 1975 M 49 From: Alfa fuentes MD PCP: NIKOLAY COLUNGA Status: REG CLI Study: Upper Ext Joint Only(Routine) Date of Exam: Exam# [id number] Ordering Dr: Julio Witt MD PROCEDURE: UPPER EXT JOINT ONLY(ROUTINE) 11/21/2024 REASON FOR EXAM: EVAL THE CUFF FOR PLANNING A TOTAL SHOULDER TECHNIQUE: Procedure Code: MRIUEJ Modality: MR Procedure: UPPER EXT JOINT ONLY(ROUTINE) Multiplanar and multisequence images were obtained without IV contrast administration. COMPARISON: COMPARISON: Left shoulder CT 11/21/2024. FINDINGS: Rotator cuff: Mild atrophy of all rotator cuff muscles. Rotator cuff tendinosis with axz-fd-juovmdpe grade deep margin partial tearing of the distal infraspinatus tendon just proximal to the insertion. Ill-defined moderate grade irregular partial tearing along both surfaces of the supraspinatus tendon predominating anteriorly, causing overall moderately severe attenuation, with as much as 3.1 cm retraction of torn deep origin fibers, without full-thickness tear component. Thinning and mild deep margin partial tearing of the distal subscapularis tendon. Long biceps tendinosis without tear, subluxation, retraction or tenosynovitis. Bones and soft tissues: Severe diffuse grade 4 nhbi-qd-wchb glenohumeral joint chondral loss, with extensive periarticular bone edema and subcortical cystic changes lining both articular surfaces, with mild cortical irregularity, broadening and flattening across the joint. Glenohumeral joint effusion containing multiple internal bodies, mostly residing in the anterior subscapular recess. Type 1 acromion. No coracoclavicular ligament tear. Mild AC joint arthrosis. Slight subacromial/subdeltoid bursitis. Mild posterior humeral head subluxation. Labrum: Undermining and partial detachment of the posterior labrum. Blunting and fraying of the anterior labrum. Attenuation, blunting and fraying of the superior labrum. Severe inferior labral attenuation and irregularity, suggesting chronic tearing. No definite paralabral cyst. MRI/Upper Ext Joint Only(Routine) IMPRESSION: Severe diffuse grade 4 ksan-qu-fjvc glenohumeral joint arthrosis with periarticular cystic changes, bone edema, effusion and internal bodies. Mild posterior humeral head subluxation. Ill-defined moderate grade partial tearing of both surfaces of the supraspinatus tendon cause overall moderately severe attenuation. Extensive areas of blunting, fraying, undermining, partial detachment and tearing of the labrum as described. Sfw-lj-bssnvrah grade deep margin partial tearing of the distal infraspinatus tendon. Thinning and deep margin partial tearing of the distal subscapularis tendon. Slight subacromial/subdeltoid bursitis. Mild AC joint arthrosis. Rotator cuff and long biceps tendinosis. Reading Location: [place] CC: Dr. Julio Witt MD; NIKOLAY COLUNGA Auto Servicer: Signed Normal [facility] Orthopedic Visit Reporton Orthopedic Visit Report [facility] [address] [facility] [address] [place] [id number] OFFICE VISIT Date of Service: 11/07/24 MR#: [id number] Acct: [id number] Name: NIKOLAY HILTON Rep #: [id number] : 1975 Provider: Dr. 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 getting stiff in FE and abudciton, worse with laying down, feels like it slips. affects the sleep. went to surgeon in [place], they did a couple cortisone injections but [...] Cosigner Signature: Date (if applicable) CC: Normal [facility] Vital Signs Date Time Vital Sign Value Performing Clinician Faci lity 11-28-2024 15:17-0400 Body height 175.26 cm Julio Witt MD Work Phone: [facility] 11-28-2024 15:17-0400 Body mass index (BMI) [Ratio] 33.2 kg/m2 Julio Witt MD Work Phone: [facility] 11-28-2024 15:17-0400 Body weight 102.05 kg Julio Witt MD Work Phone: [facility] 11-07-2024 14:37-0400 Body height 175.26 cm Julio Witt MD Work Phone: [facility] 11-07-2024 14:37-0400 Body mass index (BMI) [Ratio] 35.4 kg/m2 Julio Witt MD Work Phone: [facility] 11-07-2024 14:37-0400 Body weight 108.86 kg Julio Witt MD Work Phone: [facility] Encounters Encounter Date Encounter Type Care Provider Facility Start: 01-01-2025 ambulatory Julio Witt Facility :[facility] Start: 12-30-2024 Encounter for other preprocedural examination Julio Witt [facility] Start: 11-28-2024 End: 11-28-[address] Julio Witt MD -[facility] Work Phone: Start: 11-28-2024 End: 11-28-2024 ambulatory Julio Witt MD Work Phone: -[facility] Start: 11-21-2024 End: 11-21-2024 ambulatory Julio Witt MD Work Phone: -[facility] Start: 11-21-2024 End: 11-21-[address] Julio Witt MD -[facility] Work Phone: Start: 11-21-2024 End: 11-21-2024 ambulatory Julio Witt Facility:[facility] Start: 11-07-2024 End: 11-07-[address] Julio Witt MD -[facility] Work Phone: Start: 11-07-2024 End: 11-07-2024 ambulatory Julio Witt [facility] Procedures Date Procedure Procedure Detail Performing Clinician Start: 11-21-2024 MRI of joint of lowe r extremity Julio Witt MD Work Phone: Start: 11-21-2024 CT of upper limb wit hout contrast Julio Witt MD Work Phone: Plan of Treatment Date Care Activity Detail Author CT Upper extremity WO [facility] MR Lower Extremity Joint [facility] Immunizations Immunization Date Immunization Notes Care Provider Fa [facility] 04-03-2023 Hepatitis B vaccine (recombinant), CpG adjuvanted Julio Witt MD Work Phone: [facility] 02-17-2023 Hepatitis B vaccine (recombinant), CpG adjuvanted Julio Witt MD Work Phone: [facility] 12-17-2020 Covid (Pfizer) Julio carpenter MD Work Phone: [facility] 03-09-2020 Covid (Pfizer) Julio carpenter MD Work Phone: [facility] 02-17-2020 Covid (Pfizer) Julio carpenter MD Work Phone: [facility] Payers Date Payer Category Payer Self-pay 2024 Unknown [id number] Unknown [id number] Unknown [id number] Unknown [id number] [id number] Unknown [id number] [id number] Social History Date Type Detail Facility Start: 11-07-2024 Tobacco smoking stat us [facility] Never smoked tobacco (finding) [facility] Sex Male [facility] Start: 1975 Sex Assigned At Male [facility] Progress note 11-28-2024 Note Date & Type Note Facility 11-28-2024 Progress note [facility] Progress note 11-28-2024 Note Date & Type Note Facility 11-28-2024 Progress note Note Date/Time November 28, 2024 3:37pm [facility] [address] [place] [address] [address] [place] [address] OFFICE VISIT Date of Service: 11/28/24 MR#: [id number] Acct: [id number] Name: NIKOLAY HILTON Rep #: [id number] : 1975 Provider: Dr. Mateus Witt MD Age/Sex: 49/M Location: [facility] Status: Signed Intake Vital Signs 11/07/24 14:37 11/28/24 15:17 Height 5 ft 9 in 5 ft 9 in Weight: 240 lb 225 lb BMI 35.4 33.2 Intake Visit Reasons: LEFT SHOULDER Chief Complaint: Left Shoulder MRI/CT review Accompanied by: Self Is patient in pain?: Yes Pain scale (1-10): 2 Allergies No Known Allergies Allergy (Unverified 11/28/24 15:24) Medications ?Medication ?Instructions ?Recorded ?Confirmed ?Type acetaminophen 325 mg capsule 325 mg PO ONCE PRN 11/28/24 History Have you fallen in the past year?: No [facility] Medical History Primary osteoarthritis, left shoulder Left shoulder pain Surgical History History of cervical spinal surgery History of ankle surgery Family History Other Diabetes Social History household members: spouse and children Smoking Status: Never smoker alcohol intake: current alcohol intake frequency: holidays/special occasions only HPI LEFT SHOULDER Details: This documentation accurately reflects the service provided and the decisions made by me, Dr. Julio Witt MD 11/28/24 1431. Part of today?s visit was documented by [ ], acting as scribe. NIKOLAY HILTON is a 49 year old M here today for follow-up left shoulder CT and MRI for arthroplasty planning. Patient continues to have quite bad night pain. He is interested to proceed with total shoulder arthroplasty. Supplemental Info [facility] Imaging Services [address] [place] [address] Upper Ext Joint Only(Routine) MR#: [id number] Acct: [id number] Name: NIKOLAY HILTON Rep #: [id number] : 1975 M 49 From: Alfa Ordonez MD PCP: NIKOLAY COLUNGA Status: REG CLI Study: Upper Ext Joint Only(Routine) Date of Exam: 11/21/24 Exam# [id number] Ordering Dr: Julio Witt MD PROCEDURE: UPPER EXT JOINT ONLY(ROUTINE) 11/21/2024 REASON FOR EXAM: EVAL THE CUFF FOR PLANNING A TOTAL SHOULDER TECHNIQUE: Procedure Code: MRIUEJ Modality: MR Procedure: UPPER EXT JOINT ONLY(ROUTINE) Multiplanar and multisequence images were obtained without IV contrast administration. COMPARISON: COMPARISON: Left shoulder CT 11/21/2024. FINDINGS: Rotator cuff: Mild atrophy of all rotator cuff muscles. Rotator cuff tendinosiswith iad-qp-xrjodnpg grade deep margin partial tearing of the distal infraspinatus tendon just proximal to the insertion. Ill-defined moderate grade irregular partial tearing along both surfaces of the supraspinatus tendon predominating anteriorly, causing overall moderately severe attenuation, with as much as 3.1 cm retraction of torn deep origin fibers, without full-thickness tear component. Thinning and mild deep margin partial tearing of the distal subscapularis tendon. Long biceps tendinosis without tear, subluxation, retraction or tenosynovitis. Bones and soft tissues: Severe diffuse grade 4 ikjf-vz-xohf glenohumeral joint chondral loss, with extensive periarticular bone edema and subcortical cystic changes lining both articular surfaces, with mild cortical irregularity, broadening and flattening across the joint. Glenohumeral joint effusion containing multiple internal bodies, mostly residing in the anterior subscapular recess. Type 1 acromion. No coracoclavicular ligament tear. Mild AC joint arthrosis. Slight subacromial/subdeltoid bursitis. Mild posterior humeral head subluxation. Labrum: Undermining and partial detachment of the posterior labrum. Blunting and fraying of the anterior labrum. Attenuation, blunting and fraying of the superior labrum. Severe inferior labral attenuationand irregularity, suggesting chronic tearing. No definite paralabral cyst. MRI/Upper Ext Joint Only(Routine) IMPRESSION: Severe diffuse grade 4 ucuz-ee-yntt glenohumeral joint arthrosis with periarticular cystic changes, bone edema, effusion and internal bodies. Mild posterior humeral head subluxation. Ill-defined moderate grade partial tearing of both surfaces of the supraspinatustendon cause overall moderately severe attenuation. Extensive areas of blunting, fraying, undermining, partial detachment and tearing of the labrum as described. Yei-gb-eefgrlbe grade deep margin partial tearing of the distal infraspinatus tendon. Thinning and deep margin partial tearing of the distal subscapularis tendon. Slight subacromial/subdeltoid bursitis. Mild AC joint arthrosis. Rotator cuff and long biceps tendinosis. Reading Location: [facility] Imaging Services [address] [place] [id number] Extremity Upper without Contra MR#: [id number] Acct: [id number] Name: NIKOLAY HILTON Rep #: [id number] : 1975 M 49 From: Alfa Ordonez MD PCP: NIKOLAY COLUNGA Status: REG CLI Study: Extremity Upper without Contra Date of Exam: 11/21/24 Exam# [id number] Ordering Dr: Julio Witt MD PROCEDURE: EXTREMITY UPPER WITHOUT CONTRA 11/21/2024 REASON FOR EXAM: TSA PLANNING, NEED BLUEPRINT CUTS FOR STEMLESS TSA TECHNIQUE: Procedure Code: CTEUWO Modality: CT Procedure: EXTREMITY UPPER WITHOUT CONTRA Coronal and Sagittal reconstruction series were provided. One or more dose reduction techniques were used (e.g., Automated exposure control, adjustment of the mA and/or kV according to patient size, use of iterative reconstruction technique. RADIATION DOSE SUMMARY: CTDlvol: 40 mGy DLP: 1167 mGycm FINDINGS: Severe diffuse grade 4 skjd-pv-kvdn glenohumeral joint arthrosis with extensive periarticular cystic changes, cortical erosions, periarticular sclerosis, marginal osseous ridging, broadening and mild flattening of the articular surfaces, effusion and multiple internal bodies. No evidence of fracture Mild superior humeral head migration. No significant AC joint arthrosis. No adenopathy or other soft tissue abnormality identified, aside from mild atrophy of all rotator cuff muscles. Visualized portions of the lungs appear unremarkable. Cervicothoracic spondylosis, withoutfracture or spondylolisthesis identified. CT/Extremity Upper without Contra IMPRESSION: Severe diffuse grade 4 lltc-qk-vkyf glenohumeral joint arthrosis, with effusion and internal bodies. Rotator cuff muscle atrophy and mild superior humeral head migration. Spondylosis. Reading Location: [place] Chu independently reviewed the imaging. Concur with radiologist report. Coding Level of Care Code Off vis,est,level 4 Diagnoses Primary osteoarthritis, left shoulder M19.012 Left shoulder pain M25.512 Assessment and Plan Assessment and Plan (1) Primary osteoarthritis, left shoulder: Status: Acute Plan: 49-year-old man with advanced left shoulder glenohumeral osteoarthritis and intact rotator cuff tear. Discussed the diagnosis prognosis different treatmentoptions. If the patient is desiring surgery this would be in the form of a lefttotal shoulder arthroplasty (anatomic). We discussed the possible risks infection pain stiffness bleeding instability wearing out of the components or other problems associated with an arthroplasty. He understands wished to go ahead with a left total shoulder arthroplasty. Pros and cons risks and benefits were discussed with the patient including but not limited to infection, pain, stiffness, bleeding, damage to surrounding structures, neurovascular injury, recurrence or retear, failure or wear of hardware or fixation, instability, fracture, deep vein thrombosis and pulmonary embolism, anesthetic risks, , patient dissatisfaction, need for further surgery and other risks. Patient understood and wished to proceed with surgery,and signed the informed consent documentation. (2) Left shoulder pain: Status: Acute Clinical Quality Measures Falls Risk Screening/Assistive Devices Have you fallen in the past year?: No 11/28/24 1539 <Electronically signed by Julio carpenter MD> Date _ Julio Witt MD Cosigner Signature: Date (if applicable) CC: ~ [facility] Work Phone: Radiology Diagnostic study note 11-26-2024 Note Date & Type Note Facility 11-26-2024 Radiology Diagnostic study note [facility] Imaging Services [address] [place] [id number] Extremity Upper without Contra MR#: [id number] Acct: [id number] Name: NIKOLAY HILTON Rep #: [id number] : 1975 M 49 From: Mae Ordonez MD PCP: NIKOLAY COLUNGA Status: REG CLI Study:Extremity Upper without Contra Date of Exam: 11/21/24 Exam# [id number] Ordering Dr: Julio Witt MD PROCEDURE: EXTREMITY UPPER WITHOUT CONTRA 11/21/2024 REASON FOR EXAM: TSA PLANNING, NEED BLUEPRINT CUTS FOR STEMLESS TSA TECHNIQUE: Procedure Code: CTEUWO Modality: CT Procedure: EXTREMITY UPPER WITHOUT CONTRA Coronal and Sagittal reconstruction series were provided. One or more dose reduction techniques were used (e.g., Automated exposure control, adjustment of the mA and/or kV according to patient size, use of iterative reconstruction technique. RADIATION DOSE SUMMARY: CTDlvol: 40 mGy DLP: 1167 mGycm FINDINGS: Severe diffuse grade 4 fygj-yc-kpcf glenohumeral joint arthrosis with extensive periarticular cystic changes, cortical erosions, periarticular sclerosis, marginal osseous ridging, broadening and mild flattening of the articular surfaces, effusion and multiple internal bodies. No evidence of fracture Mild superior humeral head migration. No significant AC joint arthrosis. No adenopathy or other soft tissue abnormality identified, aside from mild atrophy of all rotator cuff muscles. Visualized portions of the lungs appear unremarkable. Cervicothoracic spondylosis, withoutfracture or spondylolisthesis identified. CT/Extremity Upper without Contra IMPRESSION: Severe diffuse grade 4 kkhk-dk-frxl glenohumeral joint arthrosis, with effusion and internal bodies. Rotator cuff muscle atrophy and mild superior humeral head migration. Spondylosis. Reading Location: [place] CC: Dr. Julio Witt MD; NIKOLAY COLUNGA ~ Auto Servicer: Signed [facility] Evaluation note 11-07-2024 Note Date & Type Note Facility 11-07-2024 Evaluation note Diagnosis Onset Date Resolution Left shoulder pain acute Septem 2024 2:33pm Primary osteoarthritis, left shoulder acute November 07, 2024 2:33pm Left shoulder pain acute Octobe r 2024 3:09pm Primary osteoarthritis, left shoulder acute November 28 3:09pm [facility] Work Phone: Progress note 11-07-2024 Note Date & Type Note Facility 11-07-2024 Progress note [facility] Progress note 11-07-2024 Note Date & Type Note Facility 11-07-2024 Progress note Note Date/Time November 07, 2024 2:58pm [facility] [address] [place] [address] [place] [id number] OFFICE VISIT Date of Service: 11/07/24 MR#: [id number] Acct: [id number] Name: NIKOLAY HILTON Rep #: [id number] : 1975 Provider: Dr. 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 getting stiff in FE and abudciton, worse with laying down, feels like it slips. affects the sleep. went to surgeon in [place], they did a couple cortisone injections but [...] Cosigner Signature: Date (if applicable) CC: ~ [facility] Work Phone: Evaluation note Note Date & Type Note Facility Evaluation note Diagnosis Onset Date Resolution Left shoulder pain acute Septem 2024 2:33pm Primary osteoarthritis, left shoulder acute November 07, 2024 2:33pm [facility] Work Phone: Reason for referral (narrative) Note Date & Type Note Facility Reason for referral (narrative) No reason for referral information available [facility] Work Phone: Chief Complaint and Reason for Visit Chief Complaint Admit Date LEFT SHOULDER November 07, 2024 2:33pm Reason for Visit Admit Date Left shoulder pain November 07, 2024 2:33pm Primary osteoarthritis, left shoulder Se ptember 2024 2:33pm Chief Complaint Admit Date LEFT SHOULDER November 07, 2024 2:33pm EVAL CUFF LT SHOULDER, PLANNING TSA Octo 2024 4:36pm LEFT SHOULDER November 28, 2024 3: 09pm Reason for Visit Admit Date Left shoulder pain November 07, 2024 2:33pm Primary osteoarthritis, left shoulder Se ptember 2024 2:33pm Left shoulder pain November 28, 2024 3: 09pm Primary osteoarthritis, left shoulder Oc tober 2024 3:09pm Summary Purpose Family History No Family History Records Found Advance Directives No Advanced Directives Records Found Additional Source Comments Care Teams (unrecognized sec tion and content) Team Status: Active Member Role/Relationship Status Dates Out of [facility] Doctor Primary care physician Active Team Status: Inactive Member Role/Relationship Status Dates Julio Witt MD Attending physician Active S tart: November 07, 2024 End: November 07, 2024 Team Status: Inactive Member Role/Relationship Status Dates Julio Witt MD Attending physician Active S tart: November 07, 2024 End: November 07, 2024 Team Status: Inactive Member Role/Relationship Status Dates Julio Witt MD Attending physician Active S tart: November 21, 2024 End: November 21, 2024 Julio Witt MD Referring Provider Active St art: November 21, 2024 End: November 21, 2024 KEANU LINK Primary care physician Active St art: November 21, 2024 End: November 21, 2024 Team Status: Inactive Member Role/Relationship Status Dates Julio Witt MD Attending physician Active S tart: November 28, 2024 End: November 28, 2024 Goals (unrecognized section and content) Goals may be documented in a n alternate sectionGoals may be documented in an alternate sectionGoals may be documented in an alternate section (unrecognized sect ion and content) No Status Records Found INFORMATION SOURCE (unrecogn ized section and content) DATE CREATED AUTHOR 12/31/2024 [facility] FOR RECORDS PERTAINING TO PATIENTS WHO ARE [...] BE BASED ON THE PRIMARY CLINICAL RECORDS. [facility]. provides no warranty or guarantee of the accuracy or completeness of information in this document.
[2025-01-01] MEDS: Lactated Ringers 1,000 ML 15 ML IV (06:17)
[2025-01-01] MEDS: Scopolamine 1mg/72hr Patch 1 PATCH TD (06:18)
[2025-01-01] MEDS: Magnesium 1 GM over 15 mins IV (06:18)
--- NOTE | 2025-01-01 06:35 | PRE.ANES_ITS ---
ASA Classification* ASA Classification ASA Classification: 2 (obesity) Assessment & Plan Anesthesia* Anesthesia Assessment Anesthesia Assessment: Discussed sedation and/or anesthesia options, risks, benefits, and alternatives with patient/parents/legal guardian/POA. Questions invited. The patient/parents/legal guardian/POA seems to understand and agrees to proceed with anesthesia plan. Reviewed the physical assessment, medical history, allergy history and patient home medications list prior to surgery/procedure/anesthetic and documented any changes. Performed airway and anesthesia risk assessments. Anesthesia Type Anesthesia Type: General and Block (Interscalene nerve block. Informed consent obtained. Benefits/risks/alternatives explained. Opportunity for questions invited. ) History Source History Obtained from:: Patient and Chart Anesthesia Focused Assessment* Temperature: 97.8 F Pulse Rate: 82 Blood Pressure: 119/80 Respiratory Rate: 16 Pulse Ox: 97 Oxygen Delivery Method: Room Air Airway Assessment Mouth opens: >3 cm Mallampati Score: III Teeth Condition: Intact Neck Range of motion (ROM): Full ROM Labs Anesthesia Preop lab: CBC WBC, (4.4-11.0) 7.5 K/mm3 12/26/24, 14:20 RBC, (4.6-6.2) 5.42 M/mm3 12/26/24, 14:20 Hgb, (13.0-16.5) 14.6 g/dL 12/26/24, 14:20 Hct, (40-54) 44.1 % 12/26/24, 14:20 Plt Count, (150-450) 388 K/mm3 12/26/24, 14:20 CHEMISTRY Potassium, (3.3-5.1) 3.9 mmol/L 12/26/24, 14:20 Sodium, (133-145) 140 mmol/L 12/26/24, 14:20 Magnesium, (1.5-2.2) 2.2 mg/dL 12/26/24, 14:20 BUN, (4-19) 24 mg/dL H 12/26/24, 14:20 Creatinine, (0.70-1.20) 1.01 mg/dL 12/26/24, 14:20 Glucose, (70-99) 126 mg/dL H 12/26/24, 14:20 POC Glucose, (74-106) 103 mg/dL Today, 06:01 COAG PT, (11.7-14.9) 13.2 SECONDS 12/26/24, 14:20 Pre-Assessment Diagnosis/Proposed Procedure Planned Operative Procedure(s): (L) Left Total Shoulder Replacement Anesthesia History 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 When Was Last Pacemaker Check QUESTION #4 FULL TEXT: You/Your Family Experience fever (hyperthermia) with Anesthesia Last Oral Intake Last Oral intake: Last Oral Intake NPO since 20:00 01/01/25 05:58 Meds taken in AM with sips of No 01/01/25 05:58 water? Meds patient instructed to take am of surgery PONV PONV - experimental electronics developer: PONV - experimental electronics developer Female No 12/18/24 14:15 HX of Motion Sickness Yes 12/18/24 14:15 HX of N/V After Surgery No 12/18/24 14:15 Non-Smoker Yes 12/18/24 14:15 Duration of Surgery greater No 12/18/24 14:15 than 60 minutes Number of Risk Factors 2 12/18/24 14:15 PONV Score Moderate Risk 12/18/24 14:15 Height & Weight Height & Weight: Anesthesia: Height & Weight Height 5 ft 9 in 01/01/25 05:58 Weight: 112.037 kg 01/01/25 05:58 Body Mass Index (BMI) 36.4 01/01/25 05:58 Respiratory Assessment Respiratory Assessment - experimental electronics developer: Respiratory Tract Infection Hx - experimental electronics developer Hx Respiratory Tract Infection No 12/18/24 14:15 STOP Sleep Apnea STOP Sleep Apnea - experimental electronics developer: STOP Sleep Apnea - experimental electronics developer Hx Hypertension No 12/18/24 14:15 Hx Sleep Apnea No 12/18/24 14:15 CPAP BIPAP Do you snore loudly (louder No 12/18/24 14:15 than talking or can be heard Do you often feel tired/ No 12/18/24 14:15 fatigued/ sleepy during daytime? Has anyone observed you stop No 12/18/24 14:15 breathing during sleep? STOP Results Negative 12/18/24 14:15 QUESTION #5 FULL TEXT : Do you snore loudly (louder than talking or can be heard through closed doors)? 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 Specify any problems Hx of Preganancy in last 3 N/A 12/18/24 14:15 Months Nurse Filling Out Transfusion NBUCHER 12/18/24 14:15 & Questions: Date: 12/18/24 12/18/24 14:15 Time: 14:16 12/18/24 14:15 Patient unable to answer at this time (ie. confused, unrespo /Reproduction History /Reproductive History - experimental electronics developer: /Reproductive Hx- experimental electronics developer Hx Now No 12/18/24 14:15 Gestational Age (in weeks): EDC: Hx Hx Para Hx Section SAB No 12/18/24 14:15 Does the father of the baby or his family experience fever w Father of the baby Malignant Hypertension history comment Active Medications Active Medications: Current Medications Generic Name Dose Route Start Last Admin Trade Name Freq PRN Reason Stop Dose Admin Acetaminophen 1,000 mg 01/01/25 07:30 01/01/25 06:04 Acetaminophen 500 Mg Tablet PO 01/01/25 07:31 1,000 mg PREOP ONE Administration Dexamethasone Sodium Phosphate 10 mg 01/01/25 07:30 Dexamethasone 10 Mg/Ml Vial IV 01/01/25 07:31 INTRAOP ONE Gabapentin 600 mg 01/01/25 07:30 01/01/25 06:05 Gabapentin 600 Mg Tablet PO 01/01/25 07:31 600 mg PREOP ONE Administration Cefazolin Sodium 2 gm/ Sodium 110 mls @ 150 mls/hr 01/01/25 07:30 Chloride IV 01/01/25 08:13 INTRAOP ONE Tranexamic Acid 1,000 mg/ 110 mls @ 660 mls/hr 01/01/25 07:30 Sodium Chloride IV 01/01/25 07:39 INTRAOP ONE Tranexamic Acid 1,000 mg/ 110 mls @ 660 mls/hr 01/01/25 07:30 Sodium Chloride IV 01/01/25 07:39 INTRAOP ONE Lactated Ringer's 1,000 mls @ 125 mls/hr 01/01/25 07:30 IV 01/01/25 15:29 .Q8H WILFREDO Magnesium Sulfate 1 gm/ 102 mls @ 408 mls/hr 01/01/25 07:30 01/01/25 06:18 Dextrose IV 01/01/25 07:44 408 mls/hr PREOP ONE Administration Lactated Ringer's 1,000 mls @ 15 mls/hr 01/01/25 05:45 01/01/25 06:17 IV 15 mls/hr .Q48H WILFREDO Administration Insulin Human Lispro 1 - 6 unit 01/01/25 07:30 Insulin Lispro 100 Unit/Ml Insuln.Pen SC 01/01/25 18:00 Q4H PRN PRN BG>/= 180, SEE PROTOCOL Protocol Scopolamine HBr 1 patch 01/01/25 07:30 01/01/25 06:18 Scopolamine 1mg/72hr Patch TD 01/01/25 07:31 1 patch PREOP ONE Administration PFSH Medical History (Updated 12/18/24 @ 14:20 by Ruthann Sykes) Wears glasses Cancer Arthritis Gastric reflux Non-smoker Primary osteoarthritis, left shoulder Left shoulder pain Home Medications ?Medication ?Instructions ?Recorded ?Last Taken ?Type acetaminophen 325 mg capsule 325 mg PO ONCE PRN pain 0 11/07/24 12/31/24 History Lactobacillus acidophilus 10 100 mmu cells PO DAILY Unknown History billion cell capsule (Probiotic) Allergy/AdvReac Type Severity Reaction Status Date / Time No Known Allergies Allergy Verified 01/01/25 05:52 Family History Other Diabetes Surgical History History of cervical spinal surgery History of ankle surgery Social History household members: spouse and children Smoking Status: Never smoker alcohol intake: current alcohol intake frequency: holidays/special occasions only Review of Systems (Anesthesia) ROS Narrative System reviewed and no additional complaints, except as documented. Physical Exam Const alert, oriented x3 and average body habitus Resp normal respiratory effort, normal air movement and clear to auscultation bilaterally Cardio regular rate, regular rhythm and no murmurs; Negative for diaphoretic
--- NOTE | 2025-01-01 07:11 | HP.PCM_ITS ---
HPI - General HPI Narrative NIKOLAY HILTON, is a 49 M who presents for left total shoulder arthroplasty (anatomic). No changes to history and physical exam. Left shoulder marked confirmed by the patient and updated the consent. Risks alternatives benefits discussed as well as postoperative instructions and narcotic counseling. Plan for preoperative block. The patient understands wished to proceed no further questions or concerns. MR#: [id number] Acct: [id number] Name: NIKOLAY HILTON Rep #: [id number] : 1975 Provider: Dr. Julio Witt MD Age/Sex: 49/M Location: [facility] – [place] Status: Signed Intake Vital Signs 11/07/2513:37 11/28/2514:17 Height 5 ft 9 in 5 ft 9 in Weight: 240 lb 225 lb BMI 35.4 33.2 Intake Visit Reasons: LEFT SHOULDER Chief Complaint: Left Shoulder MRI/CT review Accompanied by: Self Is patient in pain?: Yes Pain scale (1-10): 2 Allergies No Known Allergies Allergy (Unverified 11/28/24 15:24) Medications ?Medication ?Instructions ?Recorded ?Confirmed ?Type acetaminophen 325 mg capsule 325 mg PO ONCE PRN 11/07/24 11/28/24 His tory Have you fallen in the past year?: No PFSH Medical History Primary osteoarthritis, left shoulder Left shoulder pain Surgical History History of cervical spinal surgery History of ankle surgery Family History Other Diabetes Social History household members: spouse and children Smoking Status: Never smoker alcohol intake: current alcohol intake frequency: holidays/special occasions only HPI LEFT SHOULDER Details: This documentation accurately reflects the service provided and the decisions made by me, Dr. Julio Witt MD 11/28/24 [id number]. Part of today?s visit was documented by [ ], acting as scribe. NIKOLAY HILTON is a 49 year old M here today for follow-up left shoulder CT and MRI for arthroplasty planning. Patient continues to have quite bad night pain. He is interested to proceed with total shoulder arthroplasty. Supplemental Info [facility] Imaging Services [address] [place], [place] [id number] Upper Ext Joint Only(Routine) MR#: [id number] Acct: [id number] Name: NIKOLAY HILTON Rep #: [id number] : 1975 M 49 From: Alfa Ordonez MD PCP: NIKOLAY COLUNGA Status: REG CLI Study: Upper Ext Joint Only(Routine) Date of Exam: 11/21/24 Exam# [id number] Ordering Dr: Julio Witt MD PROCEDURE: UPPER EXT JOINT ONLY(ROUTINE) 11/21/2024 REASON FOR EXAM: EVAL THE CUFF FOR PLANNING A TOTAL SHOULDER TECHNIQUE: Procedure Code: MRIUEJ Modality: MR Procedure: UPPER EXT JOINT ONLY(ROUTINE) Multiplanar and multisequence images were obtained without IV contrast administration. COMPARISON: COMPARISON: Left shoulder CT 11/21/2024. FINDINGS: Rotator cuff: Mild atrophy of all rotator cuff muscles. Rotator cuff tendinosis with lmt-iz-vchtymqg grade deep margin partial tearing of the distal infraspinatus tendon just proximal to the insertion. Ill- defined moderate grade irregular partial tearing along both surfaces of the supraspinatus tendon predominating anteriorly, causing overall moderately severe attenuation, with as much as 3.1 cm retraction of torn deep origin fibers, without full-thickness tear component. Thinning and mild deep margin partial tearing of the distal subscapularis tendon. Long biceps tendinosis without tear, subluxation, retraction or tenosynovitis. Bones and soft tissues: Severe diffuse grade 4 edjy-bh-eluu glenohumeral joint chondral loss, with extensive periarticular bone edema and subcortical cystic changes lining both articular surfaces, with mild cortical irregularity, broadening and flattening across the joint. Glenohumeral joint effusion containing multiple internal bodies, mostly residing in the anterior subscapular recess. Type 1 acromion. No coracoclavicular ligament tear. Mild AC joint arthrosis. Slight subacromial/subdeltoid bursitis. Mild posterior humeral head subluxation. Labrum: Undermining and partial detachment of the posterior labrum. Blunting and fraying of the anterior labrum. Attenuation, blunting and fraying of the superior labrum. Severe inferior labral attenuation and irregularity, suggesting chronic tearing. No definite paralabral cyst. MRI/Upper Ext Joint Only(Routine) IMPRESSION: Severe diffuse grade 4 meba-om-zklo glenohumeral joint arthrosis with periarticular cystic changes, bone edema, effusion and internal bodies. Mild posterior humeral head subluxation. Ill-defined moderate grade partial tearing of both surfaces of the supraspinatus tendon cause overall moderately severe attenuation. Extensive areas of blunting, fraying, undermining, partial detachment and tearing of the labrum as described. Cev-vs-gidomnvz grade deep margin partial tearing of the distal infraspinatus tendon. Thinning and deep margin partial tearing of the distal subscapularis tendon. Slight subacromial/subdeltoid bursitis. Mild AC joint arthrosis. Rotator cuff and long biceps tendinosis. Reading Location: [facility] Imaging Services [address] [place] [address] Extremity Upper without Contra MR#: [id number] Acct: [id number] Name: NIKOLAY HILTON Rep #: [id number] : 1975 M 49 From: Alfa Ordonez MD PCP: NIKOLAY COLUNGA Status: REG CLI Study: Extremity Upper without Contra Date of Exam: 11/21/24 Exam# [id number] Ordering Dr: Julio Witt MD PROCEDURE: EXTREMITY UPPER WITHOUT CONTRA 11/21/2024 REASON FOR EXAM: TSA PLANNING, NEED BLUEPRINT CUTS FOR STEMLESS TSA TECHNIQUE: Procedure Code: CTEUWO Modality: CT Procedure: EXTREMITY UPPER WITHOUT CONTRA Coronal and Sagittal reconstruction series were provided. One or more dose reduction techniques were used (e.g., Automated exposure control, adjustment of the mA and/or kV according to patient size, use of iterative reconstruction technique. RADIATION DOSE SUMMARY: CTDlvol: 40 mGy DLP: 1167 mGycm FINDINGS: Severe diffuse grade 4 ceux-cw-lfkc glenohumeral joint arthrosis with extensive periarticular cystic changes, cortical erosions, periarticular sclerosis, marginal osseous ridging, broadening and mild flattening of the articular surfaces, effusion and multiple internal bodies. No evidence of fracture Mild superior humeral head migration. No significant AC joint arthrosis. No adenopathy or other soft tissue abnormality identified, aside from mild atrophy of all rotator cuff muscles. Visualized portions of the lungs appear unremarkable. Cervicothoracic spondylosis, without fracture or spondylolisthesis identified. CT/Extremity Upper without Contra IMPRESSION: Severe diffuse grade 4 xxkb-wu-djar glenohumeral joint arthrosis, with effusion and internal bodies. Rotator cuff muscle atrophy and mild superior humeral head migration. Spondylosis. Reading Location: [facility] Chu independently reviewed the imaging. Concur with radiologist report. Coding Level of Care Code Off vis,est,level 4 Diagnoses Primary osteoarthritis, left shoulder M19.012 Left shoulder pain M25.512 Assessment and Plan Assessment and Plan (1) Primary osteoarthritis, left shoulder: Status: Acute Plan: 49-year-old man with advanced left shoulder glenohumeral osteoarthritis and intact rotator cuff tear. Discussed the diagnosis prognosis different treatment options. If the patient is desiring surgery this would be in the form of a left total shoulder arthroplasty (anatomic). We discussed the possible risks infection pain stiffness bleeding instability wearing out of the components or other problems associated with an arthroplasty. He understands wished to go ahead with a left total shoulder arthroplasty. Pros and cons risks and benefits were discussed with the patient including but not limited to infection, pain, stiffness, bleeding, damage to surrounding structures, neurovascular injury, recurrence or retear, failure or wear of hardware or fixation, instability, fracture, deep vein thrombosis and pulmonary embolism, anesthetic risks, , patient dissatisfaction, need for further surgery and other risks. Patient understood and wished to proceed with surgery, and signed the informed consent documentation. (2) Left shoulder pain: Status: Acute Clinical Quality Measures Falls Risk Screening/Assistive Devices Have you fallen in the past year?: No PFS Medical History (Updated 12/18/24 @ 14:20 by Ruthann Sykes) Wears glasses Cancer Arthritis Gastric reflux Non-smoker Primary osteoarthritis, left shoulder Left shoulder pain Home Medications ?Medication ?Instructions ?Recorded ?Last Taken ?Type acetaminophen 325 mg capsule 325 mg PO ONCE PRN pain 0 11/07/24 12/31/24 History Lactobacillus acidophilus 10 100 mmu cells PO DAILY Unknown History billion cell capsule (Probiotic) Allergy/AdvReac Type Severity Reaction Status Date / Time No Known Allergies Allergy Verified 01/01/25 05:52 Family History Other Diabetes Surgical History History of cervical spinal surgery History of ankle surgery Social History household members: spouse and children Smoking Status: Never smoker alcohol intake: current alcohol intake frequency: holidays/special occasions only Vital Signs Vital Signs Vital Signs: 01/01/25 05:55 01/01/25 05:58 01/01/25 06:37 Temperature 97.8 F 97.8 F Temperature Source Temporal Pulse Rate 82 82 Respiratory Rate 16 16 Respiratory Pattern Normal Blood Pressure 119/80 119/80 Blood Pressure Mean 93 Blood Pressure Source Monitor Blood Pressure Position Semi-Fowlers Blood Pressure Location Left Arm Pulse Ox 97 97 Oxygen Delivery Method Room Air Room Air Weight Weight: 247 lb Body Mass Index (BMI) 36.4 Results Lab / Micro Data 12/26/24 14:20 12/26/24 14:20 Labs: Laboratory Results - last 24 hr 01/01/25 06:01: POC Glucose 103 D/C Safety Score for UGIB Assessment Felipe-Blatchford Bleeding Score (GBS): Stratifies upper GI bleeding patients who are low-risk and candidates for outpatient management. Sex: Male Hemoglobin, BUN, Recent Vital Signs: Hgb 14.6 g/dL (13.0-16.5) 12/26/24 14:20 BUN 24 mg/dL (4-19) H 12/26/24 14:20 Pulse Rate 82 Blood Pressure 119/80 Total Risk Score: 2 Score Interpretation: Score of 0: A GBS of 0 is a ?Low Risk? GI bleed, and is highly sensitive (99.6% in a 2007 retrospective study) for predicting which patients did not require any ?medical intervention?: blood transfusion, endoscopy, or surgery. This was confirmed in a 2009 Lancet study where patients with a score of 0 were actually discharged and had no GI bleeding mortality at 6 month followup Score above 0: A GBS greater than zero suggests a ?High Risk? GI bleed that is likely to require ?medical intervention?: transfusion, endoscopy, or surgery. A higher GBS also correlated with a higher likelihood of needing intervention Scores >/= 6 are associated with >50% risk of needing intervention D/C Safety Score for LGIB Assessment Assessment Tool: Readmission and adverse event risk in patients with acute lower GI bleeding. Age, in years: 40-69 Sex: Male Hemoglobin and Recent Vital Signs: Hgb 14.6 g/dL (13.0-16.5) 12/26/24 14:20 Pulse Rate 82 01/01/25 06:37 Blood Pressure 119/80 01/01/25 06:37 Probability of safe discharge: 99% Total Risk Score: 2 Score Interpretation: Probability Percentage of safe discharge (absence of rebleeding, blood transfusion, therapeutic intervention, 28 day readmission, or ) Score of 8 or below: Consider discharge, with appropriate precautions. Score of 9 or above: Discharge NOT recommended. Consider admission with further workup and resuscitation as necessary.
[2025-01-01] MEDS: Midazolam 2 MG/2 ML Syringe IV (07:19)
--- NOTE | 2025-01-01 09:13 | SUR.PREOP ---
surgery was delayed d/t tray issues, pt and pt's family updated by nuring data management manager. questions answered
[2025-01-01] MEDS: Cefazolin 1 GM/5 ML Vial 2 GM IV (09:15)
[2025-01-01] MEDS: Lidocaine 1% (5 ml sdv) 5 ML Vial 10 ML IV (09:21)
--- NOTE | 2025-01-01 11:40 | RAD_ITS ---
PROCEDURE: SHOULDER MIN 2 VIEWS 01/01/2025 REASON FOR EXAM: LEFT TOTAL SHOULDER REPLACEMENT TECHNIQUE: Procedure Code: RADSH Modality: DX Procedure: SHOULDER MIN 2 VIEWS Laterality: Left COMPARISON: 10/31/2023 FINDINGS: This is an administrative dictation for intraoperative fluoroscopy. Fluoroscopy time was 3.4 seconds. Cumulative dose was 0.60 mGy. 5 images were obtained. RAD/Shoulder min 2 Views IMPRESSION: Intraoperative fluoroscopy as above. Reading Location: [facility]
[2025-01-01] MEDS: TRANEXAMIC ACID 1,000 MG/10 ML ML 2000 MG IV (11:54)
[2025-01-01] MEDS: Vancomycin IV 1,000 MG/20 ML Vial OPERA.SITE (11:58)
--- NOTE | 2025-01-01 12:10 | DCINST_ITS ---
Discharge Instructions Diet Discharge Diet: No restrictions Activity Discharge Activity: Return to Normal Activity and May Shower Ice area for (Minutes): 10 Lifting Restrictions: no extremes of ROM, no lifting over 1 pound Additional Activity Instructions:: ok to remove sling at rest, pendulums 4x/day, sleep in sling Dressing / Incision Call your doctor if your incision/area has: Continuous Slow Oozing, Sudden Increased Bleeding, Increased Pain/ Swelling, Increased Redness, Foul Smelling Discharge and Swelling at the incision site Call your doctor if you observe: Fever of 101 or Higher, Coldness, Increased Pain and Numbness or Tingling Change Dressing in: leave in place till F/U Cleanse incision/area with: Do not get Incision Wet Follow Up Care Please Follow Up With: Julio Witt MD When: within 2 weeks Test Results: Test results from this visit will be discussed in further detail at your follow- up appointment, if applicable. Discharge Plan Admission Attending Provider: Julio Witt Primary Care Provider: NIKOLAY MAIN Instructions Patient Instructions: Shoulder Replace Home Recovery Print Language: Jordanian Discharge Orders/Prescriptions Prescriptions: New oxycodone-acetaminophen [Endocet] 5-325 mg tablet 1 tab PO Q4H MDD 6 PRN (Reason: pain) 5 Days Qty: 20 0RF No Action acetaminophen 325 mg capsule 325 mg PO ONCE PRN (Reason: pain) Probiotic 10 billion cell capsule 100 mmu cells PO DAILY Other Ambulatory Orders: 12 Lead EKG (Routine) Location: None Selected Ordered By: Julio Witt Referrals / Follow Up: Julio Witt MD [Med Staff - Active Staff, Orthopedics] Disposition Disposition (needs filled in before D/C Order can be placed): Home, Self Care
--- NOTE | 2025-01-01 12:13 | OP.PCM_ITS ---
Procedures Musculoskeletal [id number]-29xxx: Other Procedure See Report Operative Report (Standard) Operative Information Date of Procedure: 01/01/25 Pre-Operative Diagnosis: L shoulder OA Post-Operative Diagnosis: same Surgery/Procedure Performed: L anatomic total shoulder arthroplasty, biceps tenodesis kardex clerk: Yes Home Inspector: [email or web address] Tasks completed by grants and contracts assistant: Retracting Type of Anesthesia: Block,Regional and General RN Documented Start/Stop Times: Operation Date: 01/01/25 07:30 Case Time Into Pre-Op 01/01/25 05:35 Out of Pre-Op 01/01/25 09:13 Anesthesia Start 01/01/25 09:15 Into Room 01/01/25 09:15 Procedure Start 01/01/25 09:46 Procedure End 01/01/25 12:08 Procedure Start Time: 09:46 Procedure Stop Time: 12:08 Select all DRAINS/GRAFTS/IMPLANTS that apply: Implanted device Implanted device details: lulu boss TSA Estimated Blood Loss: 100 Specimen collected: No Description of surgery: Patient brought to the operating room theater. Placed supine on the beachchair. General anesthesia induced. 2 g IV Ancef administered prior to the start of the case. Patient set up at a 45 degree angle. Upper extremity other side in the well arm thornton left upper extremity using the arm positioner. SCDs on legs. All bony prominences padded. Upper extremity prepped and draped in usual sterile fashion allowing over 3 minutes drying time prior to draping. Preoperative timeout performed to confirm the site patient and surgery. Began by making incision just lateral to the coracoid process at the deltopectoral interval. Carried the dissection down through skin and subcutaneous tissue achieved meticulous hemostasis. Developed the interval between the deltoid and the pectoralis major. Protected the cephalic vein retracted out laterally. Dissected just on the lateral side of the conjoined tendon. Placed retractors there. Identified the circumflex humeral vessels ligated and cauterized these. Identified long head of the biceps. Released a slight amount on the upper border of the pectoralis major tendon. I did a biceps tenodesis using #2 FiberWire with the long head of the biceps to the upper border of the pectoralis major. Followed the long head of the biceps through the interval into the intra-articular aspect of the shoulder. I did a lesser tuberosity osteotomy with bones bone flap control that using #2 FiberWire. Identified the axillary nerve protected that did a capsulectomy at the anterior inferior aspect of the glenohumeral joint. Developed the plane between the glenoid and the anterior capsule. Remove the labrum as well as long head the biceps circumferentially from the glenoid. Externally rotated the shoulder. Next I turned my attention towards making the humeral cut at 30 degrees of retroversion. I removed any osteophytes - there was a large amount of osteophytes at the humerus neck and intra-articular loose body that I removed. Thorough irrigation performed. I achieve full external rotation. I did the head cut at the anatomic aspect going towards the rotator cuff which was intact today This just millimeter medial to the footprint. Remove the head smoothed and any edges used the planer instrument. I then sized this using a #2 disc. I then placed the cut guide and tapped this into place as well as the head protector. I did the nucleus just superolateral with 1 FIN aiming towards that area of the humerus. Next I turned my attention to the glenoid. Then placed the sizer for a medium anatomic glenoid component 15 degrees of posterior augment. I reamed anteriorly and posteriorly (with the 15 degree reamer posterior) to create this construct. Then reamed to the central hole placed the guide and then drilled the superior and inferior pegs with 2 pegs inferiorly and this was all removed I then drilled for the central peg as well over top of the guidewire. Guidewire was ensured to be central and aiming just anterior towards the base of the glenoid neck. Thorough irrigation performed cement mixed third-generation cement mixing techniques. Cemented the outer holes but did not cement the central hole. I then selected the Tornier simplicity perform augmented anatomic glenoid cortical locking with 15 degrees posterior wedge and tapped this into place this achieved very good purchase at the glenoid no overhangs and appropriately centered at the superior aspect of the glenoid in line with the long head of the biceps origin. Next I turned my attention back to the humeral side. I trialed using a as templated the 48 mm head with 18 mm thickness. This was appropriately placed no overhang no overstuffing. Full range of motion no impingement with 50% posteri or translation with good bounce back. I took out the trial components. I drilled holes just lateral to the osteotomy and just medial to the osteotomy as well. Lateral holes were at the biceps groove. I then passed the Arthrex fiber tape subscapularis repair sutures. I then passed this at the musculotendinous junction of the subscapularis and back into the racking stitch. The implant was then tapped into place pulse lavage performed and then the head tapped into the Zamudio taper as well solid fixation. Glenohumeral joint reduced trialing performed again felt to be stable with full range of motion and no impingement. I then secured using the knotless mechanism of the racking half hitch suture construct, pulled on these sequentially for good tension for the repair. I then brought this out laterally cut at the splice across these 1 suture from each end and then inserted those into two 4.75 mm Arthrex bio composite swivel lock anchors laterally to create a knotless double row 'box and X' configuration to repair the subscapularis. Wounds thoroughly irrigated. Thorough irrigation performed, vancomycin powder placed. IntraOp radiographs performed to confirm the appropriate position of the implants. I then closed the subcutaneous tissue with 2-0 Vicryl and sutures and for skin 3-0 Monocryl. Wounds cleaned with wet dry dressing followed application of Steri-Strips and silver Mepilex border dressing with an abduction pillow sling for the upper extremity. Patient woken up from general anesthetic transferred off the operating table taken to postanesthetic care unit in stable condition. All sponge needle instrument cons were correct no complications plan for patient discharged home from today surgery criteria follow-up in the office within 2 weeks time. cpt 14330, [id number] Surgical Findings: as above Complications Complications: No Admit VTE Documentation VTE Present on Admission: No VTE Mechan Device Prophylaxis: SCD's VTE Pharm Prophylaxis ordered?: No Reason prophylaxis not ordered: Treatment Not Indicated
--- NOTE | 2025-01-01 12:27 | PCM.POST.ANE ---
Anesthesia: Postop Eval I Current Vital Signs Temperature: 97.3 F Pulse Rate: 77 Blood Pressure: 110/74 Respiratory Rate: 16 Pulse Ox: 97 Assessment Airway patent: Yes Spontaneous unlabored respirations: Yes nausea: No Vomiting: No Anesthesia Complication: No Fluid Hydration Crystalloid volume administer (ml): 1,300 Total IV fluid infused: 1,300 Progress Note Anesthesia document: Postop Eval 1 completed: Yes
[2025-01-01] MEDS: LR 1,000 ML - 125 ML/HR POSTOP (NO BOLUS) IV (12:46)
--- NOTE | 2025-01-01 15:21 | SUR.PHASEII ---
patient swallowing and throat discomfort improved, no worse than before. cleared for DC.
--- NOTE | 2025-01-01 16:29 | POSTOPAN2_ITS ---
Anesthesia Postop Eval I Sum Postop Eval Completion status Anesthesia document: Postop Eval 1 completed: Yes Anesthesia Postop Eval I Summary Anesthesia Postop Eval I Summary: Anesthesia Postop Eval I: Assessment Summary Airway patent Yes 01/01/25 12:27 AUTOMOTIVE [email or web address].[email or web address] Spontaneous unlabored Yes 01/01/25 12:27 AUTOMOTIVE CONSULTANT.TNES respirations Mental status nausea No 01/01/25 12:27 AUTOMOTIVE [email or web address].TNES Vomiting No 01/01/25 12:27 AUTOMOTIVE [email or web address].TNES Anesthesia Postop Eval I: Fluid Summary Crystalloid volume administer 1,300 01/01/25 12:27 AUTOMOTIVE CONSULTANT.TNES (ml) Colloids volume administered ( ml) Blood Product volume administered (ml) Total IV fluid infused 1,300 01/01/25 12:27 AUTOMOTIVE [email or web address].[email or web address] Anesthesia Postop Eval I: Summary Notes Anesthesia Complication No 01/01/25 12:27 AUTOMOTIVE [email or web address].[email or web address] Anesthesia Complication Comment: Post-operative progress note Anesthesia: Postop Eval II Evaluation Mental status: Awake Pain Level: 0 nausea: No Vomiting: No Complications Anesthesia Complication: No
--- NOTE | 2025-01-01 16:29 | PCM.POSTANE2 ---
Anesthesia Postop Eval I Sum Postop Eval Completion status Anesthesia document: Postop Eval 1 completed: Yes Anesthesia Postop Eval I Summary Anesthesia Postop Eval I Summary: Anesthesia Postop Eval I: Assessment Summary Airway patent Yes 01/01/25 12:27 SECURITY COORDINATOR.[email or web address] Spontaneous unlabored Yes 01/01/25 12:27 SECURITY COORDINATOR.[email or web address] respirations Mental status nausea No 01/01/25 12:27 SECURITY COORDINATOR.[email or web address] Vomiting No 01/01/25 12:27 SECURITY COORDINATOR.[email or web address] Anesthesia Postop Eval I: Fluid Summary Crystalloid volume administer 1,300 01/01/25 12:27 SECURITY [email or web address].[email or web address] (ml) Colloids volume administered ( ml) Blood Product volume administered (ml) Total IV fluid infused 1,300 01/01/25 12:27 SECURITY COORDINATOR.TNES Anesthesia Postop Eval I: Summary Notes Anesthesia Complication No 01/01/25 12:27 SECURITY COORDINATOR.[email or web address] Anesthesia Complication Comment: Post-operative progress note Anesthesia: Postop Eval II Evaluation Mental status: Awake Pain Level: 0 nausea: No Vomiting: No Complications Anesthesia Complication: No
== END 2025-01-01 15:22 | disposition home or self-care (01) ==
LOC: SDC 05:27 → AC 05:28
PROVIDERS: Referring Provider Orthopaedic Surgery Sports Medicine; Visit Provider Orthopaedic Surgery Sports Medicine
PROC: (CPT 23472; principal; 2025-01-01 07:00)
DX: M19.012 Primary osteoarthritis, left shoulder (principal); M25.512 Pain in left shoulder
CPT/HCPCS: 23472; 23430; 01638; 36415; 73030; 76000; 80048; 82962; 82985; 83036; 83735; 85025; 85610; 85730; 86850; 86900; 86901; 87081; 93005; C1713; C1776; J2405; J3475